=== PATIENT | male | born 1990 | race Caucasian/White ===

== ENCOUNTER → 2016-06-29 | Outpatient (CLI) | payer BC ==
[~2016-06-29] MED LIST: DOXY100C42 PO
[2016-06-29 12:21] VITALS: BP 134/85
--- NOTE | 2016-06-29 12:21 | Urgent Care T Sheet Gen (E) ---
Intake General Temperature (Fahrenheit): 98.6 Pulse: 64 Blood Pressure Systolic: 134 Blood Pressure Diastolic: 85 Respirations: 18 SPO2: 98 Description of Symptoms Patient presents with possible abd hernia. First noticed approx 2 weeks ago. Patient just got out of the shower and bent over to dry his legs. At that time , he noticed an ache and a bulge in his L lower abdomen, near the belly button. When he stood up, it went away. Last week, same thing happened. Patient states those 2 instances were the only time he noticed a bulge. The area however has had a constant dull ache. No sharp shooting pains. Patient is active and does work out, specifically targeting the abd muscles. No jeromy or bladder issues. History of Present Illness Allergies: Coded Allergies: No Known Drug Allergies (Unverified , 09/06/15) Home Meds Active Scripts Doxycycline Monohydrate 100 Mg [id number] Mg PO BID Infection 10 Days Ref 0 Prov:AMEYA ROSEN MD 09/06/15 Respiratory Constitutional Symptoms: No syptoms reported EENTM: No symptoms reported Respiratory: No symptoms reported Gastrointestinal/Abdominal: Abdominal pain Genitourinary: No symptoms reported Musculoskeletal: No symptoms reported All Other Systems Reviewed Remaining Systems: All other systems reviewed with negative findings Past Fddrlfr-Mtvkrl-Eucvjj Hx Patient's Social History Alcohol Use: Denies Use Smoking Status: Never smoker Recent foreign travel: No Surgeries/Hospitalizations Hospitalization/Surgery Hx: left foot Respiratory Respiratory History: None Cardiovascular Cardiovascular History: None Gastrointestinal GI/Endocrine History: None Diabetes Diabetes: No HEENT Impaired Vision: Contacts, Glasses Hearing Impaired: None Psychosocial Behavior Disorders: None Physical Exam Physical Exam General Appearance: WD/WN No apparent distress GI/ Exam: TendernessNo Guarding, No Rebound Comment While standing, the patient's lower abdomen was evaluated. No masses were noted however there is pain along the L rectus femoris muscle, just distal to and lateral of the umbilicus. While prone, the patient's lower abdomen was again evaluated. No masses were noted. The muscles along that same area however felt weaker upon palpation. There felt to be a break in the muscles. I had the patient increase abdominal pressure by lifting up his left leg against resistance. No bulges were noted with increasing intraabdominal pressure. Same area remained tender. Departure Urgent Care Impression Impression: Primary Impression: Hernia of abdominal wall Departure Disposition: 01 HOME OR SELF-CARE Condition: Stable Additional Instructions: Probable hernia to the abdominal wall. I can feel a break in the muscle however no bulges. I offered to order an abd wall ultrasound to confirm the diagnosis however the patient declined. Opted for watchful waiting. His hernia doesn't appear to be incarcerated. Aside from the break in the muscle, I see no bulging on exam. If pain worsens, or if he decided he wants a workup, he is to call and at that time I will order an ultrasound to confirm diagnosis. Patient agrees. Suggested he refrain from any exercises which will increase abdominal pressure, which he agrees. Said to lessen workout for the next 1-2 weeks. Return as needed or call if he chooses to workup the area. Patient understands DC instructions. All questions were answered. End of report . DEONDRE TAMAYO June 29, 2016 12:21
== END ==
LOC: MHUC 11:13
PROVIDERS: ATTEND Physician Assistant
DX: K43.9 Ventral hernia without obstruction or gangrene (principal)
CPT/HCPCS: 99213